=== PATIENT | female | born 1990 | race African-American/Black ===

== ENCOUNTER 2021-02-23 08:26 | Emergency (ER) | payer BC, MEDICAID ==
[~2021-02-23] VITALS: Ht 160 cm; Wt 91.0 kg
[2021-02-23] MEDS ORDERED: METOCLOPRAMIDE HCL 10MG/2ML VIAL IV ONE (10:00)
[2021-02-23] MEDS ORDERED: SODIUM CHLORIDE 0.9% 1,000 ML IV ONE (10:00)
[2021-02-23] MEDS ORDERED: KETOROLAC 30MG/ML VIAL IV STA (10:00)
[2021-02-23 10:27] LABS: BASOPHILS % 0.7 % (0.0-2.0); EOSINOPHILS % 0.2 % (0.0-5.0); HEMATOCRIT. 41.3 % (36.0-48.0); HEMOGLOBIN. 13.7 g/dL (12.0-16.0); LYMPHOCYTES % 19.3 % (20.0-50.0); MEAN CORPUSCULAR VOLUME 78.3 fL (81.0-99.0); MEAN PLATELET VOLUME 7.9 fl (7.4-10.4); MONOCYTES % 4.3 % (2.0-8.0); NEUTROPHILS % 75.5 % (40.0-76.0); PLATELET 340 x1000/uL (130-400); RED BLOOD CELL COUNT 5.28 mill/uL (4.2-5.4); RED CELL DISTRIBUTION WIDTH 12.8 % (11.6-14.6)
[2021-02-23 10:37] LABS: CHLORIDE 107 mEq/L (98-107)
[2021-02-23 10:38] LABS: PROTHROMBIN TIME 11.1 sec (9.6-11.0)
[2021-02-23 10:54] LABS: CLARITY URINE CLEAR (CLEAR); COLOR URINE YELLOW (YELLOW); KETONES URINE NEGATIVE (NEGATIVE); LEUKOCYTE ESTERASE URINE NEGATIVE (NEGATIVE); NITRITE URINE NEGATIVE (NEGATIVE); OCCULT BLOOD URINE NEGATIVE (NEGATIVE); PH URINE 7.5 (4.5-8.0); PROTEIN URINE NEGATIVE (NEGATIVE); SPECIFIC GRAVITY URINE 1.019 (1.005-1.030)
[2021-02-23] MEDS ORDERED: SUMA25TA9 MT (11:32)
[2021-02-23] MEDS ORDERED: ONDA4TAB5 MT (11:32)
[2021-02-23 12:27] VITALS: BP 105/61
== END 2021-02-23 12:28 | disposition home or self-care (01) ==
LOC: ER 08:26
DX: R51.9 Headache, unspecified (principal); E78.00 Pure hypercholesterolemia, unspecified; Z88.1 Allergy status to other antibiotic agents; Z98.890 Other specified postprocedural states
CPT/HCPCS: 36415; 80053; 81003; 81025; 84484; 85025; 85610; 93005; 96361; 96374; 96375; 99284; J1885; J2765; J7030

== ENCOUNTER 2021-08-22 14:43 | Emergency (ER) | payer BC ==
[~2021-08-22] VITALS: Ht 160 cm; Wt 87.0 kg
[~2021-08-22 14:43] MED LIST: ONDA4TAB5 MT; SUMA25TA9 MT
[2021-08-22 16:32] LABS: CHLORIDE 110 mEq/L (98-107)
[2021-08-22 16:35] LABS: BASOPHILS % 0.5 % (0.0-2.0); EOSINOPHILS % 0.3 % (0.0-5.0); HEMATOCRIT. 39.5 % (36.0-48.0); HEMOGLOBIN. 13.1 g/dL (12.0-16.0); LYMPHOCYTES % 16.7 % (20.0-50.0); MEAN CORPUSCULAR VOLUME 78.5 fL (81.0-99.0); MEAN PLATELET VOLUME 8.1 fl (7.4-10.4); MONOCYTES % 7.2 % (2.0-8.0); NEUTROPHILS % 75.3 % (40.0-76.0); PLATELET 294 x1000/uL (130-400); RED BLOOD CELL COUNT 5.03 mill/uL (4.2-5.4); RED CELL DISTRIBUTION WIDTH 12.8 % (11.6-14.6)
[2021-08-22] MEDS ORDERED: IOHEXOL-350 100 ML BOTTLE ONE (19:35)
[2021-08-22 20:42] VITALS: BP 126/76
== END 2021-08-22 20:45 | disposition home or self-care (01) ==
LOC: ER 14:55
DX: R51.9 Headache, unspecified (principal); E78.00 Pure hypercholesterolemia, unspecified; Z87.01 Personal history of pneumonia (recurrent); Z98.890 Other specified postprocedural states
CPT/HCPCS: 36415; 70450; 70496; 71045; 80053; 81025; 83880; 84443; 84484; 85025; 93005; 99285; Q9967

== ENCOUNTER 2022-11-24 19:14 | Inpatient (IN) | payer BC ==
[~2022-11-24] VITALS: Ht 160 cm; Wt 91.2 kg
[2022-11-24 19:34] LABS: BASOPHILS % 0.6 % (0.0-2.0); EOSINOPHILS % 0.7 % (0.0-5.0); HEMATOCRIT. 39.1 % (36.0-48.0); HEMOGLOBIN. 12.6 g/dL (12.0-16.0); LYMPHOCYTES % 21.2 % (20.0-50.0); MEAN CORPUSCULAR VOLUME 80.8 fL (81.0-99.0); MEAN PLATELET VOLUME 7.8 fl (7.4-10.4); MONOCYTES % 6.2 % (2.0-8.0); NEUTROPHILS % 71.3 % (40.0-76.0); PLATELET 300 x1000/uL (130-400); RED BLOOD CELL COUNT 4.84 mill/uL (4.2-5.4); RED CELL DISTRIBUTION WIDTH 13.1 % (11.6-14.6)
[2022-11-24 19:44] LABS: CHLORIDE 110 mEq/L (98-107)
[2022-11-24 19:56] LABS: CLARITY URINE CLEAR (CLEAR); COLOR URINE YELLOW (YELLOW); KETONES URINE NEGATIVE (NEGATIVE); LEUKOCYTE ESTERASE URINE TRACE (NEGATIVE); NITRITE URINE NEGATIVE (NEGATIVE); OCCULT BLOOD URINE NEGATIVE (NEGATIVE); PH URINE 6.5 (4.5-8.0); PROTEIN URINE NEGATIVE (NEGATIVE); SPECIFIC GRAVITY URINE 1.022 (1.005-1.030)
[2022-11-25] VITALS (7 sets, daily range): BP systolic 112–134; BP diastolic 40–85; PULSE 72–84; RESP 17–20; TEMP 96.8–97.6
[2022-11-25] MEDS ORDERED: METRONIDAZOLE 500 MG PREMIX 100 ML IV ONE (01:00)
[2022-11-25] MEDS ORDERED: CEFTRIAXONE 1GM PREMIX 50 ML IV ONE (01:00)
[2022-11-25] MEDS ORDERED: SODIUM CHLORIDE 0.9% 1,000 ML IV ONE (01:00)
[2022-11-25] MEDS ORDERED: KETOROLAC 15MG/ML VIAL IV ONE (01:00)
[2022-11-25] MEDS ORDERED: KETOROLAC 30MG/ML VIAL IV PRN (06:45)
[2022-11-25] MEDS ORDERED: SODIUM CHLORIDE 0.9% 1,000 ML IV SCH (06:45)
[2022-11-25] MEDS ORDERED: LORAZEPAM 0.5MG TABLET PO PRN (07:15)
[2022-11-25] MEDS ORDERED: ACETAMINOPHEN 325MG TABLET PO PRN ×2 (07:15)
[2022-11-25] MEDS ORDERED: ONDANSETRON HCL 4MG/2ML INJ IV PRN (07:15)
[2022-11-25] MEDS ORDERED: HYDROCODONE/ACETAMINOPHEN 5/325MG TABLET PO PRN (07:15)
[2022-11-25] MEDS ORDERED: DOCUSATE SODIUM 100MG CAPSULE PO PRN (07:15)
[2022-11-25] MEDS ORDERED: IPRATROPIUM/ALBUTEROL 0.5-3(2.5)MG/3ML NEB HHN PRN (07:15)
[2022-11-25] MEDS ORDERED: CLONIDINE 0.1MG TABLET PO PRN (07:15)
[2022-11-25] MEDS ORDERED: MORPHINE SULFATE 2 MG/ML CPJ (NOT FOR IM USE) IV PRN (07:15)
[2022-11-25] MEDS ORDERED: NALOXONE HCL 0.4MG/ML VIAL IV PRN (07:30)
[2022-11-25] MEDS ORDERED: DEXT 5%/LACTATED RINGERS 1,000 ML IV SCH (10:10)
[2022-11-25 11:34] LABS: EOSINOPHILS % 0.6 % (0.0-5.0); HEMATOCRIT. 41.4 % (36.0-48.0); HEMOGLOBIN. 13.1 g/dL (12.0-16.0); LYMPHOCYTES % 26.7 % (20.0-50.0); MEAN CORPUSCULAR HEMOGLOBIN 25.8 pg (28.0-32.0); MEAN CORPUSCULAR VOLUME 81.6 fL (81.0-99.0); MEAN PLATELET VOLUME 8.1 fl (7.4-10.4); MONOCYTES % 5.9 % (2.0-8.0); NEUTROPHILS % 65.8 % (40.0-76.0); PLATELET 265 x1000/uL (130-400); RED BLOOD CELL COUNT 5.07 mill/uL (4.2-5.4); RED CELL DISTRIBUTION WIDTH 13.1 % (11.6-14.6)
[2022-11-25 11:47] LABS: CHLORIDE 112 mEq/L (98-107)
[2022-11-25 12:10] LABS: HCG SCREEN NEGATIVE
[2022-11-25] MEDS ORDERED: BIKTARVY 50-200-25MG TABLET PO SCH (18:30)
[2022-11-25] MEDS ORDERED: BICT1TAB PO (18:31)
[2022-11-26 04:00] VITALS: BP 139/54; PULSE 74; RESP 20; TEMP 97.4
[2022-11-26 07:55] LABS: BASOPHILS % 0.6 % (0.0-2.0); EOSINOPHILS % 1.1 % (0.0-5.0); HEMATOCRIT. 39.9 % (36.0-48.0); HEMOGLOBIN. 13.2 g/dL (12.0-16.0); LYMPHOCYTES % 23.7 % (20.0-50.0); MEAN CORPUSCULAR HEMOGLOBIN 26.7 pg (28.0-32.0); MEAN CORPUSCULAR VOLUME 80.6 fL (81.0-99.0); MEAN PLATELET VOLUME 8.3 fl (7.4-10.4); MONOCYTES % 7.6 % (2.0-8.0); PLATELET 284 x1000/uL (130-400); RED BLOOD CELL COUNT 4.94 mill/uL (4.2-5.4)
[2022-11-26 08:00] VITALS: BP 122/77; PULSE 90; RESP 20; TEMP 95.5
[2022-11-26 08:23] LABS: CHLORIDE 111 mEq/L (98-107)
[2022-11-26 09:19] VITALS: BP 122/77; PULSE 90; TEMP 95.5; O2SAT 98
== END 2022-11-26 10:30 | disposition home or self-care (01) | DRG 446 ==
LOC: ER 19:14 → 4WST 11-25 03:45 → EDBEDREQTM 11-25 03:49 → EDBEDREQ 11-25 03:49 → ENRESERV 11-25 04:33
PROVIDERS: ADMIT Internal Medicine; ATTEND Internal Medicine
DX: K80.10 Calculus of gallbladder with chronic cholecystitis without obstruction (principal); E66.9 Obesity, unspecified; E78.00 Pure hypercholesterolemia, unspecified; K76.0 Fatty (change of) liver, not elsewhere classified; Z68.35 Body mass index [BMI] 35.0-35.9, adult; Z87.01 Personal history of pneumonia (recurrent); Z87.442 Personal history of urinary calculi; Z88.1 Allergy status to other antibiotic agents; Z79.899 Other long term (current) drug therapy; Z88.8 Allergy status to other drugs, medicaments and biological substances
CPT/HCPCS: 36415; 76705; 80048; 80053; 80076; 81003; 84703; 85025; 99285; J0696; J1885; J2405; J3490; J7030; J7121

== ENCOUNTER 2024-08-14 21:45 | Emergency (ER) | payer BC ==
[~2024-08-14] VITALS: Ht 160 cm; Wt 90.0 kg
[~2024-08-14 21:45] MED LIST changes: +BICT1TAB PO
[2024-08-14 21:50] VITALS: O2SAT 100
[2024-08-14 21:55] VITALS: BP 142/92; PULSE 93; RESP 18; TEMP 36.8; O2SAT 99
[2024-08-14] MEDS: LIDOCAINE HCL/PF 1% 10 MG/ML 5ML VIAL INFIL ONE (22:30)
[2024-08-14] MEDS: BACITRACIN ZINC OINT UDPKT TOP ONE (22:30)
[2024-08-15] MEDS ORDERED: AMOX1TAB16 MT (00:12)
[2024-08-15] MEDS: AMOXICILLIN/POTASSIUM CLAVULANATE 875/125MG TAB PO ONE (00:31)
== END 2024-08-15 00:51 | disposition home or self-care (01) ==
LOC: ER 21:45
DX: S71.111A Laceration without foreign body, right thigh, initial encounter (principal); Z88.1 Allergy status to other antibiotic agents; Z90.49 Acquired absence of other specified parts of digestive tract; W54.0XXA Bitten by dog, initial encounter; Y93.K1 Activity, walking an animal; Y92.89 Other specified places as the place of occurrence of the external cause; Y99.8 Other external cause status
CPT/HCPCS: 12002; 99283; J2003; Z7610 ×3

== ENCOUNTER 2025-02-23 13:00 | Emergency (ER) | payer BC ==
[~2025-02-23] VITALS: Ht 170.2 cm; Wt 85.0 kg
[~2025-02-23 13:00] MED LIST changes: +AMOX1TAB16 MT
[2025-02-23 13:04] VITALS: O2SAT 99
[2025-02-23] MEDS ORDERED: SUMATRIPTAN SUCCINATE 6MG/0.5ML VIAL SUBCUT ONE (16:30)
[2025-02-23] MEDS ORDERED: DEXAMETHASONE 10 MG/ML VIAL IV ONE (16:30)
[2025-02-23] MEDS ORDERED: KETOROLAC 30MG/ML VIAL IV ONE (16:30)
[2025-02-23] MEDS ORDERED: DIPHENHYDRAMINE 50MG/ML VIAL IV ONE (16:30)
[2025-02-23] MEDS: SODIUM CHLORIDE 0.9% 1,000 ML IV ONE (16:30)
[2025-02-23] MEDS: PROCHLORPERAZINE 10MG/2ML VIAL IV ONE (18:23)
[2025-02-23] MEDS: KETOROLAC 30MG/ML VIAL IV SCH (18:24)
[2025-02-23] MEDS: DEXAMETHASONE 10 MG/ML VIAL IV SCH (18:25)
[2025-02-23] MEDS: SUMATRIPTAN SUCCINATE 6MG/0.5ML VIAL SUBCUT SCH (18:25)
[2025-02-23] MEDS ORDERED: KETO10TA2 MT (19:23)
[2025-02-23] MEDS: LORAZEPAM 2MG/ML UD SYRINGE IV SCH (19:58)
[2025-02-23] MEDS: DIPHENHYDRAMINE 50MG/ML VIAL IV SCH (20:00)
[2025-02-23 20:58] LABS: HEMATOCRIT. 41.0 % (36.0-48.0); HEMOGLOBIN. 13.4 g/dL (12.0-16.0); MEAN PLATELET VOLUME 8.1 fl (7.4-10.4); PLATELET 282 x1000/uL (130-400); RED BLOOD CELL COUNT 5.19 mill/uL (4.2-5.4); RED CELL DISTRIBUTION WIDTH 13.6 % (11.6-14.6)
[2025-02-23 21:12] LABS: CREATININE 0.8 mg/dL (0.6-1.0)
[2025-02-23 21:13] LABS: UREA NITROGEN BLOOD 8 mg/dL (9-23)
[2025-02-23 21:14] LABS: ASPARTATE AMINOTRANSFERASE 19 IU/L (<34); BILIRUBIN DIRECT 0.2 mg/dL (<=3.0); TROPONIN I HIGH SENSITIVITY < 4 ng/L (3.0-34)
[2025-02-23 21:15] LABS: BILIRUBIN TOTAL 0.8 mg/dL (0.1-1.0); PROTEIN TOTAL 7.3 g/dL (6.0-8.3)
[2025-02-23 21:16] LABS: LYMPHOCYTES % MANUAL 9.0 % (20.0-60.0); MONOCYTES % MANUAL 2.0 % (2.0-8.0); NEUTROPHILS % MANUAL 89.0 % (45.0-75.0); PLATELET ESTIMATE NORMAL
[2025-02-23] MEDS ORDERED: HYDR50TA55 MT (21:50)
[2025-02-23 22:34] VITALS: BP 152/94; PULSE 90; RESP 18; TEMP 37.2; O2SAT 99
== END 2025-02-23 22:37 | disposition home or self-care (01) ==
LOC: ER 13:00
DX: G43.909 Migraine, unspecified, not intractable, without status migrainosus (principal); F41.9 Anxiety disorder, unspecified; T38.0X5A Adverse effect of glucocorticoids and synthetic analogues, initial encounter; Z79.899 Other long term (current) drug therapy; Z88.1 Allergy status to other antibiotic agents; Y92.89 Other specified places as the place of occurrence of the external cause
CPT/HCPCS: 80076; 80048; 81025; 85025; 84484; 36415; 71045; 70450; 93005; 96361; 96372; 96374; 96375; 99285; J1100; J1200; J1885; J2060; J0780; J3030; J7030; Z7610